=== PATIENT | male | born 1975 | race African-American/Black ===

== ENCOUNTER 2018-10-23 15:55 | Inpatient (IN) | payer OTHER ==
[~2018-10-23] VITALS: Ht 177.8 cm; Wt 99.8 kg
[2018-10-23 17:25] LABS: BASOPHILS % 0.2 % (0.0-2.0); EOSINOPHILS % 5.6 % (0.0-5.0); HEMATOCRIT. 43.3 % (42.0-52.0); HEMOGLOBIN. 13.9 g/dL (14.0-18.0); LYMPHOCYTES % 23.7 % (20.0-50.0); MEAN CORPUSCULAR HEMOGLOBIN 23.3 pg (28.0-32.0); MEAN CORPUSCULAR VOLUME 72.6 fL (80.0-94.0); MEAN PLATELET VOLUME 9.8 fl (7.4-10.4); MONOCYTES % 10.5 % (2.0-8.0); PLATELET 218 x1000/uL (130-400); RED BLOOD CELL COUNT 5.97 mill/uL (4.7-6.1); RED CELL DISTRIBUTION WIDTH 15.4 % (11.6-14.6)
[2018-10-23 17:27] LABS: CHLORIDE 99 mEq/L (98-107)
[2018-10-24 08:00] VITALS: BP 136/73
[2018-10-24 08:40] VITALS: BP 141/95
[2018-10-24 09:42] VITALS: BP 141/95
[2018-10-24 12:00] VITALS: BP 136/94
[2018-10-24] MEDS ORDERED: ACETAMINOPHEN 325MG TABLET PO PRN (12:15)
[2018-10-24] MEDS ORDERED: ONDANSETRON HCL 4MG/2ML INJ IV PRN (12:15)
[2018-10-24] MEDS ORDERED: HYDR12.529 MT (12:20)
[2018-10-24] MEDS ORDERED: HYDR25TA MT (12:22)
[2018-10-24] MEDS: ASPIRIN 325MG EC TABLET PO SCH (13:51)
[2018-10-24 15:48] LABS: LDL CHOLESTEROL 114 mg/dL (5-100)
[2018-10-24 15:49] LABS: CREATINE KINASE 96 IU/L (39-308)
[2018-10-24 15:50] LABS: HDL CHOLESTEROL 39 mg/dL (40-59)
[2018-10-24 15:51] LABS: CREATINE KINASE MB FRACTION < 1.0 ng/mL (0.5-3.6)
[2018-10-24 16:00] VITALS: BP 122/94
[2018-10-24 19:54] LABS: *BARBITURATES SCREEN URINE NEGATIVE (NEGATIVE); *BENZODIAZEPINES SCREEN URINE NEGATIVE (NEGATIVE); *COCAINE SCREEN URINE PRESUMTIVE POSITIVE (NEGATIVE); METHADONE URINE SCREEN NEGATIVE (NEGATIVE); OPIATES URINE SCREEN NEGATIVE (NEGATIVE); PHENCYCLIDINE URINE SCREEN NEGATIVE (NEGATIVE)
[2018-10-24 19:55] LABS: *AMPHETAMINES SCREEN URINE NEGATIVE (NEGATIVE); CANNABINOID URINE SCREEN NEGATIVE (NEGATIVE)
[2018-10-24 20:00] VITALS: BP 138/90
[2018-10-24] MEDS: METOPROLOL TARTRATE 25MG TABLET PO SCH (22:26)
[2018-10-25] VITALS: BP 124/84
[2018-10-25 04:00] VITALS: BP 127/86
[2018-10-25 05:46] LABS: BASOPHILS % 0.4 % (0.0-2.0); EOSINOPHILS % 4.9 % (0.0-5.0); HEMATOCRIT. 41.4 % (42.0-52.0); HEMOGLOBIN. 13.6 g/dL (14.0-18.0); LYMPHOCYTES % 34.4 % (20.0-50.0); MEAN CORPUSCULAR HEMOGLOBIN 23.8 pg (28.0-32.0); MEAN CORPUSCULAR VOLUME 72.4 fL (80.0-94.0); MONOCYTES % 9.7 % (2.0-8.0); NEUTROPHILS % 50.6 % (40.0-76.0); PLATELET 193 x1000/uL (130-400); RED BLOOD CELL COUNT 5.72 mill/uL (4.7-6.1); RED CELL DISTRIBUTION WIDTH 14.9 % (11.6-14.6)
[2018-10-25 06:04] LABS: CHLORIDE 101 mEq/L (98-107)
[2018-10-25 08:00] VITALS: BP 102/70
[2018-10-25] MEDS: METOPROLOL TARTRATE 25MG TABLET PO SCH (09:00)
[2018-10-25] MEDS: ASPIRIN 325MG EC TABLET PO SCH (09:21)
[2018-10-25 12:00] VITALS: BP 107/69
[2018-10-25 14:23] VITALS: BP 107/69
== END 2018-10-25 15:25 | disposition home or self-care (01) | DRG 206 ==
LOC: ER 17:08 → 6WST 18:00 → EDBEDREQ 18:05 → EDBEDREQTM 18:05 → ENRESERV 10-24 07:05
PROVIDERS: ADMIT Internal Medicine; ATTEND Internal Medicine
DX: M94.0 Chondrocostal junction syndrome [Tietze] (principal); E78.1 Pure hyperglyceridemia; I10 Essential (primary) hypertension; R73.03 Prediabetes
CPT/HCPCS: 36415; 71045; 80048; 80061; 80305; 82550; 82553; 83880; 84443; 84484; 85379; 93005; 93306; 99285